=== PATIENT | male | born 1950 | race Hispanic/Latino ===

== ENCOUNTER 2017-03-19 08:12 | Observation (INO) | payer MEDICARE, OTHER ==
[2017-03-19 08:17] VITALS: BP 192/108; PULSE 71; RESP 16; TEMP 97.2; O2SAT 97
[2017-03-19 08:18] VITALS: BMI 31.3
--- NOTE | 2017-03-19 08:54 | ED PDOC ---
Lower Extremity Pain/Injury Time Seen by Provider: 03/19/17 08:28 Chief Complaint (Nursing): Lower Extremity Problem/Injury Chief Complaint (Provider): Left Hip and Thigh Pain History Per: Patient History/Exam Limitations: no limitations Onset/Duration Of Symptoms: Days Current Symptoms Are (Timing): Still Present Additional Complaint(s): Lupillo Larson is a 66 year old male who presents to the ED for evaluation of left hip and posterior thigh pain which began Thursday night. He states that the area feels swollen. He denies calf pain or swelling. No strenuous activity or trauma. Pain is worse with lying and going from sitting to standing. He has a colonoscopy scheduled for tomorrow and stopped taking his Coumadin on Thursday, but has kalyan giving himself Lovenox injections and taking aspirin. He has history of mitral valve replacement, pacemaker, HTN. He reports taking aspirin prior to arrival for pain relief and reports adequate relief at this time. Past Medical History Reviewed: Historical Data, Nursing Documentation, Vital Signs Vital Signs: Last Vital Signs Temp 97.2 F L 03/19/17 08:17 Pulse 71 03/19/17 08:17 Resp 16 03/19/17 08:17 BP 192/108 H 03/19/17 08:17 Pulse Ox 97 03/19/17 08:17 - Medical History PMH: Arthritis, Fractures, HTN, Mitral Valve Prolapse, Peripheral Edema Denies: CHF, COPD, HIV, Hypercholesterolemia, Hypothyroidism, Chronic Kidney Disease, Rheumatoid Arthritis - Surgical History Surgical History: Pacemaker - Family History Family History: States: Unknown Family Hx - Home Medications Home Medications: Ambulatory Orders Medication Instructions Recorded Allopurinol 300 mg PO DAILY 12/20/15 Acetaminophen [Tylenol] 325 mg PO Q4 PRN 12/29/15 Docusate [Colace] 200 mg PO BID 12/29/15 Metoprolol Tartrate [Lopressor] 50 mg PO Q12 12/29/15 Ferrous Sulfate [Feosol] 325 mg PO BID #0 tab 01/04/16 DiphenhydrAMINE [Benadryl] 25 mg PO HS PRN 01/16/16 HYDROmorphone [Dilaudid] 2 mg IV Q4H PRN 01/16/16 Oxycodone HCl/Acetaminophen 2 tab PO Q4H PRN #0 tablet 07/20/16 [Percocet 5-325 mg Tablet] oxyCODONE/Acetaminophen [Percocet 1 tab PO Q4 PRN #0 tab 01/16/16 5/325 mg Tab] traMADol [Ultram] 50 mg PO Q6H PRN #12 tab 03/19/17 - Allergies Allergies/Adverse Reactions: Allergies Allergy/AdvReac Type Severity Reaction Status Date / Time No Known Allergies Allergy Verified 01/17/16 00:24 Review of Systems Musculoskeletal: Positive for: Leg Pain, Other (Hip pain) Physical Exam - Physical Exam Appears: Positive for: Non-toxic, No Acute Distress Head Exam: Positive for: ATRAUMATIC, NORMOCEPHALIC Skin: Positive for: Normal Color, Warm, Dry Neck: Positive for: Normal, Painless ROM, Supple Cardiovascular/Chest: Positive for: Regular Rate, Rhythm. Negative for: Murmur Respiratory: Positive for: Normal Breath Sounds. Negative for: Respiratory Distress Gastrointestinal/Abdominal: Positive for: Normal Exam, Soft. Negative for: Tenderness Back: Positive for: Normal Inspection. Negative for: L CVA Tenderness, R CVA Tenderness, Other (Midline tenderness) Extremity: Positive for: Other (Tenderness oiver left medial hip posteriorly and posterior thigh, No edema, No knee pain or calf tenderness) - ECG O2 Sat by Pulse Oximetry: 97 - Progress ED Course And Treament: 03/19/17 09:15 Duplex Lower Extremity Vein Left IMPRESSION: No sonographic or Doppler evidence for DVT in left lower extremity. Medical Decision Making Medical Decision Making: Impression: Leg Pain Musculoskeletal Pain DVT Plan: XRay US Scribe Attestation: Documented by Dedrick Gabriel, acting as a scribe for Purvi Sanz MD. Provider Scribe Attestation: All medical record entries made by the Scribe were at my direction and personally dictated by me. I have reviewed the chart and agree that the record accurately reflects my personal performance of the history, physical exam, medical decision making, and the department course for this patient. I have also personally directed, reviewed, and agree with the discharge instructions and disposition. ED OBSERVATION - Progress Note Progress Note: 03/19/17 10:00 Patient placed on Obs because of extensive time of workup. 03/19/17 12:00 CT Left Hip without Contrast IMPRESSION: No evidence of acute fracture or dislocation. Few scattered sclerotic bony lesions korey the left pelvic bones and left femoral neck with the largest lesion measures 2.4 cm. The differential consideration includes benign bone island and sclerotic osseous metastasis. correlation with PSA level is suggested. Focal area of high attenuation seen at and adjacent to the left gluteus medius muscle may represent hematoma. Other etiology including neoplasm is not totally excluded. Adjacent subcutaneous fat stranding seen in the left pelvic wall. Correlate clinically for recent trauma. if the patient's symptoms persists further assessment by MRI may be obtained. 03/19/17 13:[address] Hal Rutledge. He recommends CMP and PSA level and to discharge patient home on tramadol. He will follow the results and will follow up with patient tomorrow. Patient can continue with the colonoscopy as scheduled. Disposition - Clinical Impression Clinical Impression: Bony sclerosis - Disposition Condition: STABLE
--- NOTE | 2017-03-19 10:42 | RAD ---
PROCEDURE: Left Hip X-ray Radiographs. HISTORY: LUE pain COMPARISON: None. FINDINGS: BONES: There is no evidence of acute fracture or dislocation. There is suspicious for focal sclerotic bony lesion at the superior portion of the left iliac bone. No evidence of destructive bony lesion. JOINTS: Smbw-to-[id number] bilateral osteoarthritic changes at the hip joints. SOFT TISSUES: Normal. OTHER FINDINGS: None. IMPRESSION: No evidence of acute fracture or dislocation. Suspicious for sclerotic bony lesion at the superior portion of the left iliac bone. Osteoarthritic changes at the hip joints.
--- NOTE | 2017-03-19 11:06 | US ---
HISTORY: Pain PRIORS: 12/23/2016. FINDINGS: 2-D, color and duplex Doppler analysis of the lower extremity venous circulation using routine protocol from the femoral veins through the popliteal veins. Venous compressibility: Normal. Flow and augmentation patterns: Normal. Visualized veins upper third of calf: Normal. Bond cyst: None. IMPRESSION: No sonographic or Doppler evidence for DVT in left lower extremity.
--- NOTE | 2017-03-19 12:41 | CT ---
PROCEDURE: CT of the left hip without contrast HISTORY: Abnormal XR. Left hip pain COMPARISON: Comparison is made to the previous x-ray done on the same date. TECHNIQUE: Axial and reformatted coronal and sagittal CT images of the left pelvis and left hip were obtained without IV contrast administration. FINDINGS: There is no evidence of acute fracture or dislocation. Nfan-[id number] osteoarthritic changes at the left hip joint seen. There are few scattered sclerotic bony lesion at the left iliac bone and left femoral neck. The largest sclerotic lesions seen at the left iliac bone measures approximately 2.4 x 1.8 centimeter. Findings may represent bone islands. The possibility of osseous metastasis is not totally excluded. Correlation with PSA level is suggested. There is poorly defined area of high attenuation seen at and adjacent to the upper portion of left low-dose medius muscle measures 4.3 centimeter in the AP diameter 3.2 centimeter in the transverse diameter. There are adjacent subcutaneous stranding and induration. Findings could represent posttraumatic changes and hematoma. Other etiology including neoplasm is not totally excluded. Otherwise no evidence of soft tissue abnormality in this noncontrast study. The visualized portion of the pelvis demonstrates scattered colonic diverticulosis without evidence of diverticulitis. The prostate is mildly enlarged. No evidence of lymphadenopathy in the visualized portion of the pelvis. Moderate degenerative changes at the lower lumbar spine are noted. IMPRESSION: No evidence of acute fracture or dislocation. Few scattered sclerotic bony lesions at the left pelvic bones and left femoral neck with the largest lesion measures 2.4 centimeter. The differential consideration includes benign bone island and sclerotic osseous metastasis. Correlation with PSA level is suggested. Focal area of high attenuation seen at and adjacent to the left gluteus medius muscle may represent hematoma. Other etiology including neoplasm is not totally excluded. Adjacent subcutaneous fat stranding seen in the left pelvic wall. Correlate clinically for recent trauma. If the patient's symptoms persist further assessment by MRI may be obtained. Findings were discussed with the referring ER physician Dr. Sanz at 12:30 p.m. on 03/19/2017.
[2017-03-19 13:39] LABS: ALB/GLOB RATIO 1.6 (1.0-2.1); ALKALINE PHOSPHATASE 63 U/L (38-126); ALT/SGPT 35 U/L (21-72); AST/SGOT 37 U/L (17-59); BILIRUBIN,TOTAL 0.9 mg/dl (0.2-1.3); BLOOD UREA NITROGEN 22 mg/dl (9-20); CALCIUM 9.4 mg/dL (8.4-10.2); CARBON DIOXIDE 27 mmol/L (22-30); CHLORIDE 102 mmol/L (98-107); GFR AFRICAN-AMERICAN > 60; GLUCOSE,RANDOM 100 mg/dL (75-110); POTASSIUM 4.5 MMOL/L (3.6-5.0); SODIUM 138 mmol/l (132-148)
[2017-03-19 14:08] LABS: PROSTATE SPECIFIC ANTIGEN 0.789 ng/ML (0.00-4.0)
== END 2017-03-19 13:35 | disposition home or self-care (01) ==
LOC: H.ER 08:12 → H.EROBSV 10:00
PROVIDERS: ADMIT Emergency Medicine; ATTEND Emergency Medicine
DX: M79.652 Pain in left thigh (principal); I10 Essential (primary) hypertension; M19.90 Unspecified osteoarthritis, unspecified site; Z95.2 Presence of prosthetic heart valve; Z95.0 Presence of cardiac pacemaker
CPT/HCPCS: 36415; 73502; 73700; 80053; 84153; 93971; 99283; G0378

== ENCOUNTER 2017-08-04 09:44 | Emergency (ER) | payer MEDICARE, OTHER ==
[2017-08-04 09:44] VITALS: BMI 31.3
[2017-08-04 09:56] VITALS: TEMP 97
[2017-08-04] MEDS ORDERED: Phenylephrine 0.5% Nasal Spray NAS STA (10:19)
[2017-08-04] MEDS ORDERED: Phenylephrine 0.5% Nasal Spray NAS ONE ×2 (10:25→18:30)
--- NOTE | 2017-08-04 10:48 | ED PDOC ---
HPI: Nose Bleed Time Seen by Provider: 08/04/17 10:11 Chief Complaint (Nursing): ENT Problem Chief Complaint (Provider): Epistaxis History Per: Patient History/Exam Limitations: no limitations Onset/Duration Of Symptoms: Days (x1) Current Symptoms Are (Timing): Still Present Additional Complaint(s): 66 year old male with a past medical history of atrial fibrillation and aortic valve replacement, who presents to the ED complaining of epistaxis x1 day. States right nose greater than left and it began this morning. Denies trauma. Patient states he is on Coumadin for atrial fibrillation and mechanical valve. Denies any bruising or blood in stools. PMD: Bob Rutledge V Past Medical History Reviewed: Historical Data, Nursing Documentation, Vital Signs Vital Signs: Last Vital Signs Temp 97.0 F L 08/04/17 09:52 Pulse 66 08/04/17 09:52 Resp 18 08/04/17 09:52 BP 167/97 H 08/04/17 09:52 Pulse Ox 100 08/04/17 09:52 - Medical History PMH: Arthritis, Atrial Fibrillation, Fractures, HTN, Mitral Valve Prolapse, Peripheral Edema Denies: CHF, COPD, HIV, Hypercholesterolemia, Hypothyroidism, Chronic Kidney Disease, Rheumatoid Arthritis - Surgical History Surgical History: Pacemaker Other surgeries: Aortic valve replacement - Family History Family History: States: Unknown Family Hx - Home Medications Home Medications: Ambulatory Orders Medication Instructions Recorded Allopurinol 300 mg PO DAILY 12/20/15 Metoprolol Tartrate [Lopressor] 50 mg PO Q12 12/29/15 Aspirin [Ecotrin] 81 mg PO DAILY 08/04/17 Furosemide [Lasix] 40 mg PO DAILY 08/04/17 Warfarin [Coumadin] 10 mg PO DAILY 08/04/17 - Allergies Allergies/Adverse Reactions: Allergies Allergy/AdvReac Type Severity Reaction Status Date / Time No Known Allergies Allergy Verified 01/17/16 00:24 Review of Systems ROS Statement: Except As Marked, All Systems Reviewed And Found Negative ENT: Positive for: Other (epistaxis) Gastrointestinal: Negative for: Hematochezia Skin: Negative for: Bruising Physical Exam - Reviewed Nursing Documentation Reviewed: Yes Vital Signs Reviewed: Yes - Physical Exam Appears: Positive for: Non-toxic, No Acute Distress Head Exam: Positive for: ATRAUMATIC, NORMAL INSPECTION, NORMOCEPHALIC Skin: Positive for: Normal Color (no ecchymosis or petechia), Warm, Dry. Negative for: Rash Eye Exam: Positive for: EOMI, Normal appearance, PERRL ENT: Positive for: Other (anterior right nares oozing mildly) Neck: Positive for: Normal, Painless ROM, Supple Cardiovascular/Chest: Positive for: Irregularly Irregular Respiratory: Positive for: Normal Breath Sounds. Negative for: Respiratory Distress Gastrointestinal/Abdominal: Positive for: Normal Exam, Bowel Sounds, Soft. Negative for: Tenderness Back: Positive for: Normal Inspection. Negative for: L CVA Tenderness, R CVA Tenderness, Vertebral Tenderness Extremity: Positive for: Normal ROM. Negative for: Pedal Edema, Deformity Neurologic/Psych: Positive for: Alert, Oriented (x3). Negative for: Motor/ Sensory Deficits - Laboratory Results Result Diagrams: 08/04/17 10:33 08/04/17 10:33 - ECG O2 Sat by Pulse Oximetry: 100 (RA) Pulse Ox Interpretation: Normal - Progress Re-evaluation Time: 11:33 Condition: Improved (No bleeding or oozing) - Physician Consult Information Outcome Of Conversation: Hold Coumadin. Call office Thurs to confirm colonoscopy Medical Decision Making Medical Decision Making: Time: 10:19 Initial Plan: --CMP --CBC w/ differential --PTT --Nasal [place] --Reevaluation Scribe Attestation: Documented by Prashanth Martins, acting as a scribe for Frank Molina MD. Provider Scribe Attestation: All medical record entries made by the Scribe were at my direction and personally dictated by me. I have reviewed the chart and agree that the record accurately reflects my personal performance of the history, physical exam, medical decision making, and the department course for this patient. I have also personally directed, reviewed, and agree with the discharge instructions and disposition. Disposition - Clinical Impression Clinical Impression: Epistaxis - Patient ED Disposition Is Patient to be Admitted: No Counseled Patient/Family Regarding: Studies Performed, Diagnosis, Need For Followup - Disposition Referrals: Pawan Paulson MD [Staff Provider] - Jona Zhou MD, PhD [Staff Provider] - Disposition: Routine/Home Disposition Time: 11:34 Condition: FAIR Instructions: Nosebleed (ED) Forms: [employer] (Gu[place]ian)
[2017-08-04 10:51] LABS: BASO # 0.1 K/uL (0.0-0.2); BASO % 0.5 % (0.0-2.0); EOS # 0.2 K/uL (0.0-0.7); EOS % 1.7 % (0.0-4.0); HEMOGLOBIN 13.9 g/dL (12.0-18.0); LYMPH # 1.8 K/uL (1.0-4.3); LYMPH % 18.4 % (20.0-40.0); MEAN CELL VOLUME 89.8 fl (80.0-94.0); MEAN CORPUSCULAR HEMOGLOBIN 29.2 pg (27.0-31.0); MEAN CORPUSCULAR HGB CONC 32.5 g/dL (33.0-37.0); MEAN PLATELET VOLUME 11.2 fl (7.2-11.7); MONO % 10.4 % (0.0-10.0); NEUT # 6.8 K/uL (1.8-7.0); RBC 4.77 Mil/uL (4.40-5.90); RED CELL DISTRIBUTION WIDTH 15.1 % (11.5-14.5); WHITE BLOOD COUNT 9.9 K/uL (4.8-10.8)
[2017-08-04 10:52] LABS: INR 3.4 (0.9-1.2); PROTHROMBIN TIME 38.8 Seconds (9.8-13.1)
[2017-08-04 11:10] LABS: ALB/GLOB RATIO 1.4 (1.0-2.1); ALBUMIN 4.3 g/dL (3.5-5.0); CALCIUM 9.7 mg/dL (8.4-10.2)
[2017-08-04 15:11] VITALS: BP 153/94; PULSE 86; RESP 16; O2SAT 99
[2017-08-04] MEDS ORDERED: Silver Nitrate Topical - Stick ONE ×4 (18:26→22:35)
[2017-08-04] MEDS ORDERED: Absorbable Gelatin Sponge Size 12-7 ONE (20:34)
[2017-08-04] MEDS ORDERED: Lidocaine 2% Jelly (Uro-Jet) ONE (21:20)
== END 2017-08-04 16:04 | disposition home or self-care (01) ==
LOC: H.ER 09:44
DX: R04.0 Epistaxis (principal); I10 Essential (primary) hypertension; I48.91 Unspecified atrial fibrillation; Z79.01 Long term (current) use of anticoagulants

== ENCOUNTER 2017-08-04 18:04 | Observation (INO) | payer MEDICARE, OTHER ==
[2017-08-04 18:04] VITALS: BMI 31.3
[2017-08-04] MEDS ORDERED: Silver Nitrate Topical - Stick TOP ONE (18:22)
--- NOTE | 2017-08-04 18:52 | ED PDOC ---
HPI: Nose Bleed Time Seen by Provider: 08/04/17 18:22 Chief Complaint (Nursing): ENT Problem History Per: Patient (Recurrent epistaxis, seen earlier and packed with rhino. Returns with bleeding right nares) Past Medical History Vital Signs: Last Vital Signs Temp 98.0 F 08/04/17 18:10 Pulse 70 08/04/17 18:10 Resp 16 08/04/17 18:10 BP 154/93 H 08/04/17 18:10 Pulse Ox 100 08/04/17 18:10 - Medical History PMH: Arthritis, Atrial Fibrillation, Fractures, HTN, Mitral Valve Prolapse, Peripheral Edema Denies: CHF, COPD, HIV, Hypercholesterolemia, Hypothyroidism, Chronic Kidney Disease, Rheumatoid Arthritis - Surgical History Surgical History: Pacemaker - Family History Family History: States: Unknown Family Hx - Home Medications Home Medications: Ambulatory Orders Medication Instructions Recorded Allopurinol 300 mg PO DAILY 12/20/15 Metoprolol Tartrate [Lopressor] 50 mg PO Q12 12/29/15 Aspirin [Ecotrin] 81 mg PO DAILY 08/04/17 Furosemide [Lasix] 40 mg PO DAILY 08/04/17 Warfarin [Coumadin] 10 mg PO DAILY 08/04/17 - Allergies Allergies/Adverse Reactions: Allergies Allergy/AdvReac Type Severity Reaction Status Date / Time No Known Allergies Allergy Verified 01/17/16 00:24 Review of Systems ENT: Positive for: Other (Nose bleed) Physical Exam - Physical Exam Appears: Positive for: Non-toxic, No Acute Distress Skin: Positive for: Normal Color ENT: Positive for: Other (Oozing ant right nares. Cauterized with silver nitrate ) - Laboratory Results Result Diagrams: 08/04/17 18:55 - ECG O2 Sat by Pulse Oximetry: 100 Medical Decision Making Medical Decision Making: Multiple attempts at cauterization withsilver nitrate. Packed x 2 with rhinocort. Packed with surgicel. Continues to ooze. Discussed with Dr. Wolff, will come in to evaluate and pack pt. Disposition - Clinical Impression Clinical Impression: Epistaxis, Coagulopathy - Patient ED Disposition Is Patient to be Admitted: Yes - Disposition Disposition Time: 21:21 Condition: FAIR Forms: [facility] (Urdu) - Pt Status Changed To: Hospital Disposition Of: Observation - POA Present On Arrival: None
[2017-08-04 19:04] LABS: BASO # 0.1 K/uL (0.0-0.2); BASO % 0.8 % (0.0-2.0); EOS # 0.1 K/uL (0.0-0.7); EOS % 1.1 % (0.0-4.0); HEMOGLOBIN 11.9 g/dL (12.0-18.0); LYMPH % 17.4 % (20.0-40.0); MEAN CELL VOLUME 89.9 fl (80.0-94.0); MEAN CORPUSCULAR HEMOGLOBIN 28.6 pg (27.0-31.0); MEAN CORPUSCULAR HGB CONC 31.8 g/dL (33.0-37.0); MEAN PLATELET VOLUME 12.1 fl (7.2-11.7); MONO # 1.2 K/uL (0.0-0.8); MONO % 10.2 % (0.0-10.0); NEUT % 70.5 % (50.0-75.0); RBC 4.15 Mil/uL (4.40-5.90); RED CELL DISTRIBUTION WIDTH 14.7 % (11.5-14.5); WHITE BLOOD COUNT 11.4 K/uL (4.8-10.8)
[2017-08-04] MEDS ORDERED: Cellulose Hemostat 2X3 Sheet TP ONE (20:27)
[2017-08-04] MEDS ORDERED: Absorbable Gelatin Sponge Size 12-7 ONE (20:44)
[2017-08-04] MEDS ORDERED: Sodium Chloride 0.9% 1,000 ML IV STA (21:19)
[2017-08-05 06:46] LABS: MEAN CELL VOLUME 88.7 fl (80.0-94.0); MEAN CORPUSCULAR HEMOGLOBIN 29.2 pg (27.0-31.0); MEAN CORPUSCULAR HGB CONC 32.9 g/dL (33.0-37.0); RBC 3.44 Mil/uL (4.40-5.90); RED CELL DISTRIBUTION WIDTH 14.7 % (11.5-14.5); WHITE BLOOD COUNT 9.7 K/uL (4.8-10.8)
[2017-08-05 06:53] LABS: INR 3.6 (0.9-1.2); PARTIAL THROMBOPLASTIN TIME 35.7 Seconds (25.6-37.1)
[2017-08-05 06:55] LABS: PROTHROMBIN TIME 41.4 Seconds (9.8-13.1)
--- NOTE | 2017-08-05 07:46 | OP ---
PROCEDURE DATE: 08/04/2017 PREOPERATIVE DIAGNOSIS: Right epistaxis. POSTOPERATIVE DIAGNOSIS: Right epistaxis. PROCEDURE: Cauterization of epistaxis, right. SIGNIFICANT FINDINGS: Bleeding area on the anterior septum on the right. DESCRIPTION OF PROCEDURE: The patient was placed in a seated position. The nose was anesthetized using lidocaine jelly. Nasal speculum and headlights were used to visualize the anterior nasal septum. Silver nitrate sticks were used to cauterize the septum on the side. A small piece of Surgicel was placed over the septum, noticed to control the bleeding. Bleeding was controlled. Deepak Wolff MD
[2017-08-05 08:25] VITALS: BP 134/75; PULSE 59; RESP 20; TEMP 98; O2SAT 98
--- NOTE | 2017-08-05 08:57 | CP.PCM.HP ---
History of Present Illness - History of Present Illness History of Present Illness: This 66-year-old man came to the emergency room with complaints of severe nosebleed was treated and sent home and returned to the emergency room again because severe nosebleed from the right nostril continued. Attempts to cauterize it in the emergency room were unsuccessful as well as packing the nostril was not really successful and the patient and an ENT surgeon finally had to come into the emergency room and thoroughly cauterize the bleeder as well as PAC the right nostril the patient overnight has not had any further bleeding. He does report four bouts of mild loose bowel movements which are tarry black. 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 The patient had bouts of atrial flutter which was ablated and the patient demonstrated severe bradycardia requiring an urgent pacemaker implant at the same time. The patient subsequently has had atrial flutter fibrillation with a VVI pacemaker in place. He has had congestive cardiac failure with a left ventricular ejection fraction which was in the range of 30-35% on echocardiogram in November 2015. Patient has been taking furosemide regularly. He has taken warfarin regularly for the last 10 years and has had appropriate monitoring as well as bridging with SC Lovenox whenever a surgical procedure or dental extraction or colonoscopy was done. The patient has taken oral antibiotic for BE prophylaxis appropriately over the years. Physical examination now shows a middle aged pleasant man who has nasal packing in the right nostril but otherwise feels well. He had just finished eating his breakfast and reports no further bleeding overnight. As mentioned earlier he has had 4 bouts of tarry stools during the night. Telemetry shows a heart rate of 68 bpm with appropriate VVI pacemaker function. His blood pressure was 134/ 70 mmHg. His jugular venous pressure was not elevated and there was no edema or his lower extremity. The pedal pulses are well felt. There were no carotid bruits. His extremities were warm and his nailbeds are pink. There was no central or peripheral cyanosis. A scar of sternotomy was evident. A mitral prosthetic Cadman's was audible. His lab data showed his hemoglobin to be 11.9 g yesterday and 10.0 g this morning. His platelet count was 89,000. His INR last night was 3.6 his BUN and creatinine were 61 and 1.7 mg percent. His potassium was 3.5 mg/L. Impression: Severe epistaxis with coagulopathy induced by oral anticoagulation. Status post mitral valve replacement with a metallic prosthesis. Status post VVI pacemaker implant with chronic atrial flutter fibrillation. The patient will have his PT/INR drawn this morning and I will adjust his Coumadin dosage appropriately. His blood count drawn this morning will be checked again. He probably will need oral iron replacement. At this point he has no further bleed and is hemodynamically stable and I will okayed his discharge. The patient is to be managed as an outpatient. He has an appointment to see the ENT surgeon in couple of days. Present on Admission - Present on Admission Any Indicators Present on Admission: No Past Patient History - Infectious Disease Hx of Infectious Diseases: None - Tetanus Immunizations Tetanus Immunization: Unknown - Past Medical History & Family History Past Medical History?: Yes - Past Social History Smoking Status: Never Smoked - CARDIAC Hx Cardiac Disorders: Yes Hx Hypertension: Yes Hx Pacemaker: Yes Other/Comment: MITRAL VALVE REPLACEMENT 2006 - PULMONARY Hx Respiratory Disorders: No Hx Chronic Obstructive Pulmonary Disease (COPD): No - NEUROLOGICAL Hx Neurological Disorder: No - HEENT Hx HEENT Problems: No - RENAL Hx Chronic Kidney Disease: No - ENDOCRINE/METABOLIC Hx Endocrine Disorders: No Hx Hypothyroidism: No - HEMATOLOGICAL/ONCOLOGICAL Hx Blood Disorders: Yes Hx AIDS: No Hx Anemia: Yes Hx Blood Transfusions: Yes Hx Human Immunodeficiency Virus (HIV): No - INTEGUMENTARY Hx Dermatological Problems: No - MUSCULOSKELETAL/RHEUMATOLOGICAL Hx Musculoskeletal Disorders: Yes Hx Falls: No Hx Gout: Yes - GASTROINTESTINAL Hx Gastrointestinal Disorders: No - GENITOURINARY/GYNECOLOGICAL Hx Genitourinary Disorders: No - PSYCHIATRIC Hx Psychophysiologic Disorder: No Hx Substance Use: No - SURGICAL HISTORY Hx Surgeries: Yes (PM in 2005, mitral valve replacement 2006) Hx Valve Replacement: Yes (Giulia valve replacement) Other/Comment: I and D right hip done 01/01 2016 and 12/17? 2016 - ANESTHESIA Hx Anesthesia: Yes Hx Anesthesia Reactions: No Hx Malignant Hyperthermia: No Meds Allergies/Adverse Reactions: Allergies Allergy/AdvReac Type Severity Reaction Status Date / Time No Known Allergies Allergy Verified 01/17/16 00:24 Results - Vital Signs Recent Vital Signs: Last Vital Signs Temp 98 F 08/05/17 08:00 Pulse 59 L 08/05/17 08:00 Resp 20 08/05/17 08:00 BP 134/75 02/07/18 08:00 Pulse Ox 98 08/05/17 08:00 - Labs Result Diagrams: 08/05/17 05:30 08/05/17 05:30 Labs: Laboratory Results - last 24 hr 08/04/17 08/04/17 08/05/17 18:55 23:15 05:30 WBC 11.4 H 9.7 RBC 4.15 L 3.44 L Hgb 11.9 L D 10.0 L Hct 37.3 30.5 L MCV 89.9 88.7 MCH 28.6 29.2 MCHC 31.8 L 32.9 L RDW 14.7 H 14.7 H Plt Count 107 L 89 L MPV 12.1 H Neut % (Auto) 70.5 Lymph % (Auto) 17.4 L [place] % (Auto) 10.2 H Eos % (Auto) 1.1 Baso % (Auto) 0.8 Neut # (Auto) 8.0 H Lymph # (Auto) 2.0 [place] # (Auto) 1.2 H Eos # (Auto) 0.1 Baso # (Auto) 0.1 PT INR APTT Sodium Potassium Chloride Carbon Dioxide Anion Gap BUN Creatinine Est GFR ( Amer) Est GFR (Non-Af Amer) Random Glucose Calcium Blood Type A NEGATIVE Antibody Screen Negative BBK History Checked Patient has bt 08/05/17 08/05/17 05:30 05:30 WBC RBC Hgb Hct MCV MCH MCHC RDW Plt Count MPV Neut % (Auto) Lymph % (Auto) [place] % (Auto) Eos % (Auto) Baso % (Auto) Neut # (Auto) Lymph # (Auto) [place] # (Auto) Eos # (Auto) Baso # (Auto) PT 41.4 H* INR 3.6 H APTT 35.7 Sodium 145 Potassium 3.5 L Chloride 106 Carbon Dioxide 28 Anion Gap 15 BUN 61 H Creatinine 1.7 H Est GFR ( Amer) 49 Est GFR (Non-Af Amer) 41 Random Glucose 92 Calcium 9.0 Blood Type Antibody Screen BBK History Checked
== END 2017-08-05 12:06 | disposition home or self-care (01) ==
LOC: H.ER 18:04 → H.ERHOLD 21:17 → H.TEL 23:37
PROVIDERS: ADMIT Internal Medicine Cardiovascular Disease; ATTEND Internal Medicine Cardiovascular Disease
DX: R04.0 Epistaxis (principal); D68.9 Coagulation defect, unspecified; I48.2 Chronic atrial fibrillation; I48.92 Unspecified atrial flutter; I34.1 Nonrheumatic mitral (valve) prolapse; I11.0 Hypertensive heart disease with heart failure; I50.9 Heart failure, unspecified; M19.90 Unspecified osteoarthritis, unspecified site; Z95.0 Presence of cardiac pacemaker; Z95.2 Presence of prosthetic heart valve; Z79.01 Long term (current) use of anticoagulants; Z79.82 Long term (current) use of aspirin
CPT/HCPCS: 30901; 36415; 80048; 85025; 85027; 85610; 85730; 86850; 86900; 96374; 99285; G0378; J2405

== ENCOUNTER 2017-08-28 07:51 | Day surgery (SDC) | payer MEDICARE, OTHER ==
[2017-08-28] MEDS ORDERED: Lactated Ringer's 1,000 ML IV ONE (08:34)
[2017-08-28 09:26] VITALS: O2SAT 100
[2017-08-28] MEDS ORDERED: Propofol 10 mg/ml Inj (20 ML) ONE (09:41)
[2017-08-28] MEDS ORDERED: Lidocaine PF 2% (5 ml) Inj (For Cardiac Arrhy) IV ONE (09:41)
[2017-08-28 10:19] VITALS: TEMP 97.6
[2017-08-28 11:02] VITALS: BP 116/70; PULSE 90; RESP 19
== END 2017-08-28 13:36 | disposition home or self-care (01) ==
LOC: H.ENDO 07:51
PROVIDERS: ATTEND Internal Medicine Gastroenterology
DX: Z86.010 Personal history of colon polyps (principal); I25.10 Atherosclerotic heart disease of native coronary artery without angina pectoris; I10 Essential (primary) hypertension; M10.9 Gout, unspecified; D12.2 Benign neoplasm of ascending colon; K21.9 Gastro-esophageal reflux disease without esophagitis; K64.8 Other hemorrhoids; K30 Functional dyspepsia; K31.9 Disease of stomach and duodenum, unspecified; B96.81 Helicobacter pylori [H. pylori] as the cause of diseases classified elsewhere; K29.50 Unspecified chronic gastritis without bleeding
CPT/HCPCS: 43239; 45385; 88305; J2001; J2704; J3370; J7120

== ENCOUNTER 2018-02-25 12:49 | Emergency (ER) | payer MEDICARE, OTHER ==
[2018-02-25 12:56] VITALS: TEMP 98.1; BMI 29.7
--- NOTE | 2018-02-25 13:28 | ED PDOC ---
HPI: Abdomen Time Seen by Provider: 02/25/18 13:06 Chief Complaint (Nursing): Abdominal Pain Chief Complaint (Provider): abdominal pain History Per: Patient History/Exam Limitations: no limitations Onset/Duration Of Symptoms: Days (yesterday) Current Symptoms Are (Timing): Still Present Location Of Pain/Discomfort: Other (lower) Associated Symptoms: Diarrhea. denies: Fever, Chills, Nausea, Vomiting Additional Complaint(s): Lupillo Larson is a 67 year old male, with a past medical history of mitral valve replacement and HTN, who presents to the emergency department complaining of lower abdominal pain associated with diarrhea and abdominal distention onset since yesterday. He denies any fever, chills, nausea, vomiting or bloody stools. No further medical complaints. PMD: Bob Rutledge V Past Medical History Reviewed: Historical Data, Nursing Documentation, Vital Signs Vital Signs: Last Vital Signs Temp 98.1 F 02/25/18 12:58 Pulse 77 02/25/18 12:58 Resp 16 02/25/18 12:58 BP 169/87 H 02/25/18 12:58 Pulse Ox 98 02/25/18 13:30 - Medical History PMH: Anemia, Arthritis, Atrial Fibrillation, Fractures, HTN, Mitral Valve Prolapse, Peripheral Edema Denies: CHF, COPD, HIV, Hypercholesterolemia, Hypothyroidism, Chronic Kidney Disease, Rheumatoid Arthritis - Surgical History Surgical History: Pacemaker - Family History Family History: States: Unknown Family Hx - Social History Current smoker - smoking cessation education provided: No Alcohol: None Drugs: Denies - Home Medications Home Medications: Ambulatory Orders Medication Instructions Recorded Allopurinol 300 mg PO DAILY 12/20/15 Metoprolol Tartrate [Lopressor] 50 mg PO Q12 12/29/15 Aspirin [Ecotrin] 81 mg PO DAILY 08/04/17 Furosemide [Lasix] 40 mg PO DAILY 08/04/17 Warfarin [Coumadin] 10 mg PO DAILY 08/04/17 Enoxaparin [Lovenox] SUBCUT DAILY 08/28/17 Ciprofloxacin HCl [Cipro] 500 mg PO BID #20 tab 02/25/18 Dicyclomine [Dicyclomine HCl] 10 mg PO Q8 #10 cap 02/25/18 metroNIDAZOLE [Flagyl] 500 mg PO Q8 #30 tab 02/25/18 - Allergies Allergies/Adverse Reactions: Allergies Allergy/AdvReac Type Severity Reaction Status Date / Time shellfish derived Allergy RASH Verified 02/25/18 12:58 Review of Systems ROS Statement: Except As Marked, All Systems Reviewed And Found Negative Constitutional: Negative for: Fever, Chills Gastrointestinal: Positive for: Abdominal Pain, Diarrhea. Negative for: Nausea , Vomiting, Hematochezia Physical Exam - Reviewed Nursing Documentation Reviewed: Yes Vital Signs Reviewed: Yes - Physical Exam Appears: Positive for: No Acute Distress Head Exam: Positive for: ATRAUMATIC, NORMAL INSPECTION, NORMOCEPHALIC Skin: Positive for: Normal Color, Warm, Dry Eye Exam: Positive for: Normal appearance, EOMI, PERRL Neck: Positive for: Painless ROM Cardiovascular/Chest: Positive for: Regular Rate, Rhythm. Negative for: Murmur Respiratory: Positive for: Normal Breath Sounds. Negative for: Respiratory Distress Gastrointestinal/Abdominal: Positive for: Bowel Sounds (present), Tenderness ( mild tenderness to lower quadrants, left > right), Distended Back: Positive for: Normal Inspection. Negative for: L CVA Tenderness, R CVA Tenderness Extremity: Positive for: Normal ROM (upper and lower extremities). Negative for : Deformity, Swelling Neurologic/Psych: Positive for: Alert, Oriented. Negative for: Motor/Sensory Deficits - Laboratory Results Result Diagrams: 02/25/18 13:20 02/25/18 13:20 - ECG O2 Sat by Pulse Oximetry: 98 (RA) Pulse Ox Interpretation: Normal Medical Decision Making Medical Decision Making: Time: 13:06 Initial Impression: abdominal pain Initial Plan: --Abd & Pelvis w/o PO or IV contrast [CT] --CMP --Urine dipstick --CBC w/ differential --PT/INR --Reevaluation ----- Scribe Attestation: Documented by Jeff Desai, acting as a scribe for Frank Molina MD. Provider Scribe Attestation: All medical record entries made by the Scribe were at my direction and personally dictated by me. I have reviewed the chart and agree that the record accurately reflects my personal performance of the history, physical exam, medical decision making, and the department course for this patient. I have also personally directed, reviewed, and agree with the discharge instructions and disposition. Disposition - Clinical Impression Clinical Impression: Diverticulitis - Patient ED Disposition Is Patient to be Admitted: No Counseled Patient/Family Regarding: Studies Performed, Diagnosis, Need For Followup, Rx Given - Disposition Referrals: Bob Rutledge MD [Staff Provider] - Disposition: Routine/Home Disposition Time: 14:53 Condition: FAIR Prescriptions: Ciprofloxacin HCl [Cipro] 500 mg PO BID #20 tab Dicyclomine [Dicyclomine HCl] 10 mg PO Q8 #10 cap metroNIDAZOLE [Flagyl] 500 mg PO Q8 #30 tab Instructions: Diverticulitis Forms: [facility] (Telugu)
[2018-02-25 13:34] LABS: BASO # 0.1 K/uL (0.0-0.2); BASO % 0.5 % (0.0-2.0); EOS # 0.1 K/uL (0.0-0.7); EOS % 0.8 % (0.0-4.0); HEMOGLOBIN 11.9 g/dL (12.0-18.0); LYMPH % 9.5 % (20.0-40.0); MEAN CELL VOLUME 90.7 fl (80.0-94.0); MEAN CORPUSCULAR HEMOGLOBIN 29.6 pg (27.0-31.0); MEAN CORPUSCULAR HGB CONC 32.6 g/dL (33.0-37.0); MEAN PLATELET VOLUME 11.4 fl (7.2-11.7); MONO # 1.3 K/uL (0.0-0.8); NEUT # 8.2 K/uL (1.8-7.0); NEUT % 77.2 % (50.0-75.0); PLATELET COUNT 101 K/uL (130-400); RBC 4.03 Mil/uL (4.40-5.90); RED CELL DISTRIBUTION WIDTH 16.2 % (11.5-14.5); WHITE BLOOD COUNT 10.7 K/uL (4.8-10.8)
[2018-02-25 13:42] LABS: INR 2.1; PROTHROMBIN TIME 23.2 Seconds (9.8-13.1)
[2018-02-25 13:55] LABS: ALB/GLOB RATIO 1.3 (1.0-2.1); ALBUMIN 4.5 g/dL (3.5-5.0); ALT/SGPT 32 U/L (21-72); AST/SGOT 34 U/L (17-59); BLOOD UREA NITROGEN 24 mg/dl (9-20); CALCIUM 9.6 mg/dL (8.4-10.2); GFR NON-AFRICAN AMERICAN > 60
--- NOTE | 2018-02-25 14:14 | CT ---
Date of service: 02/25/2018 PROCEDURE: CT Abdomen and Pelvis without intravenous contrast HISTORY: r/o kidney stone COMPARISON: 01/15/2016. TECHNIQUE: CT scan of the abdomen and pelvis was performed without administration of intravenous contrast. Oral contrast was not administered. Coronal and sagittal reformatted images were obtained. . Radiation dose: Total exam DLP = 739.72 mGy-cm. This CT exam was performed using one or more of the following dose reduction techniques: Automated exposure control, adjustment of the mA and/or kV according to patient size, and/or use of iterative reconstruction technique. FINDINGS: LOWER THORAX: The visualized lungs are clear. There is a tiny calcified nodule in the right middle lobe. LIVER: Normal in size. No intrahepatic ductal dilatation. GALLBLADDER AND BILE DUCTS: No calcified gallstones. No biliary dilatation PANCREAS: Normal in size. No ductal dilatation. SPLEEN: Normal in size. ADRENALS: Normal in size. No discrete nodule. KIDNEYS AND URETERS: Normal in size without nephrolithiasis. No hydronephrosis. There is a 3.8 cm simple cyst in the upper pole of the right kidney. VASCULATURE: No aortic aneurysm. BOWEL: The small bowel loops are normal in caliber. There is left colonic diverticulosis. There is apparent mild circumferential mural thickening in the distal descending and proximal sigmoid colon with significant pericolonic inflammatory changes. No evidence of micro perforation or abscess. . No bowel dilatation or wall thickening. No bowel obstruction. APPENDIX: Normal appendix. PERITONEUM: No free fluid. No free air. LYMPH NODES: No enlarged lymph nodes. BLADDER: Well distended and grossly normal in appearance. REPRODUCTIVE: The the prostate gland is normal in size BONES: No acute fracture. There is diffuse bone demineralization and multilevel degenerative changes in the spine. OTHER FINDINGS: There are bilateral small fat containing inguinal hernias. IMPRESSION: Findings are most compatible with long segmental acute diverticulitis involving the left distal descending colon and proximal sigmoid colon. No micro perforation or abscess.
[2018-02-25 14:21] LABS: BASOPHIL 1 % (0-2); EOSINOPHIL 1 % (0-7); LYMPHOCYTE 9 % (20-50); MONOCYTE 7 % (0-10); NEUTROPHIL 82 % (42-75); PLATELET ESTIMATE DECREASED (NORMAL); TOTAL CELLS COUNTED 100
[2018-02-25 14:22] LABS: ANISOCYTOSIS SLIGHT; HYPOCHROMIC SLIGHT
[2018-02-25 14:23] LABS: LARGE PLATELETS PRESENT
[2018-02-25 15:19] VITALS: BP 150/82; PULSE 71; RESP 17; O2SAT 99
== END 2018-02-25 15:30 | disposition home or self-care (01) ==
LOC: H.ER 12:49
DX: K57.00 Diverticulitis of small intestine with perforation and abscess without bleeding (principal); I10 Essential (primary) hypertension; I34.1 Nonrheumatic mitral (valve) prolapse; Z79.01 Long term (current) use of anticoagulants; Z95.0 Presence of cardiac pacemaker

== ENCOUNTER 2018-08-15 07:06 | Emergency (ER) | payer MEDICARE, OTHER ==
[2018-08-15 07:27] VITALS: PULSE 70; BMI 29.8
[2018-08-15] MEDS ORDERED: Morphine 4 MG/ML VIAL IVP STA (08:47)
--- NOTE | 2018-08-15 09:08 | ED PDOC ---
HPI: Nose Bleed Time Seen by Provider: 08/15/18 07:57 Chief Complaint (Nursing): ENT Problem Chief Complaint (Provider): ENT Problem History Per: Patient History/Exam Limitations: no limitations Onset/Duration Of Symptoms: Hrs Current Symptoms Are (Timing): Still Present Additional Complaint(s): Patient is a 67 y/o male on Coumadin and Aspirin with a PMHx of HTN, anemia, arthritis, atrial fibrillation, mitral valve prolapse, and peripheral edema who presents to the ED for evaluation of a frequent nose bleed since waking up this morning. Patient has stuffed nostrils with cotton balls but has been unable to stop nose bleed. Patient admits to nausea but denies dizziness and pain. Of note, patient had right nostril cauterized by Dr. Kendall Bernal in [place], [place]. In addition, patient had Coumadin checked by Dr. Rutledge but does not know levels at this time. PCP: Dr. Bob Rutledge Past Medical History Reviewed: Historical Data, Nursing Documentation, Vital Signs Vital Signs: Last Vital Signs Temp 97 F L 08/15/18 07:26 Pulse 70 08/15/18 07:26 Resp 20 08/15/18 07:26 BP 174/95 H 08/15/18 07:26 Pulse Ox 97 08/15/18 07:26 - Medical History PMH: Anemia, Arthritis, Atrial Fibrillation, Fractures, HTN, Mitral Valve Prolapse, Peripheral Edema Denies: CHF, COPD, HIV, Hypercholesterolemia, Hypothyroidism, Chronic Kidney Disease, Rheumatoid Arthritis - Surgical History Surgical History: Pacemaker Other surgeries: Nostrils Cauterized - Family History Family History: States: Unknown Family Hx - Home Medications Home Medications: Ambulatory Orders Medication Instructions Recorded RX: Allopurinol 300 mg PO DAILY 12/20/15 RX: Metoprolol Tartrate [Lopressor] 50 mg PO Q12 12/29/15 Aspirin [Ecotrin] 81 mg PO DAILY 08/04/17 Furosemide [Lasix] 40 mg PO DAILY 08/04/17 Warfarin [Coumadin] 10 mg PO DAILY 08/04/17 Enoxaparin [Lovenox] SUBCUT DAILY 08/28/17 Ciprofloxacin HCl [Cipro] 500 mg PO BID #20 tab 02/25/18 Dicyclomine [Dicyclomine HCl] 10 mg PO Q8 #10 cap 02/25/18 metroNIDAZOLE [Flagyl] 500 mg PO Q8 #30 tab 02/25/18 Acetaminophen with Codeine 1 each PO Q6 #10 tablet 08/15/18 [Tylenol with Codeine #3 Tablet] - Allergies Allergies/Adverse Reactions: Allergies Allergy/AdvReac Type Severity Reaction Status Date / Time shellfish derived Allergy RASH Verified 02/25/18 12:58 Review of Systems ROS Statement: Except As Marked, All Systems Reviewed And Found Negative ENT: Positive for: Nose Discharge (bleeding), Other (stuffed nostrils with cotton balls to prevent bleeding). Negative for: Nose Pain Gastrointestinal: Positive for: Nausea Neurological: Negative for: Dizziness Physical Exam - Reviewed Nursing Documentation Reviewed: Yes Vital Signs Reviewed: Yes - Physical Exam Appears: Positive for: Non-toxic, No Acute Distress Head Exam: Positive for: ATRAUMATIC, NORMAL INSPECTION, NORMOCEPHALIC Skin: Positive for: Normal Color, Warm, Dry Eye Exam: Positive for: Normal appearance, EOMI, PERRL ENT: Positive for: Other (initial blood soaked cotton in both nares; no active bleeding from right nare but steady stream from left; unable to visualize location of bleeding) Neck: Positive for: Normal, Painless ROM, Supple Cardiovascular/Chest: Positive for: Regular Rate, Rhythm. Negative for: Murmur Respiratory: Positive for: Normal Breath Sounds. Negative for: Respiratory Distress Gastrointestinal/Abdominal: Positive for: Normal Exam, Soft. Negative for: Tenderness Back: Positive for: Normal Inspection. Negative for: L CVA Tenderness, R CVA Tenderness, Vertebral Tenderness Extremity: Positive for: Normal ROM. Negative for: Pedal Edema, Deformity Neurologic/Psych: Positive for: Alert, Oriented. Negative for: Motor/Sensory Deficits - Laboratory Results Result Diagrams: 08/15/18 14:48 08/15/18 10:50 - ECG O2 Sat by Pulse Oximetry: 97 (RA) Pulse Ox Interpretation: Normal Medical Decision Making Medical Decision Making: Time: 08 Impresion: Left epistaxis unsure if anterior or posterior Plan: Type and Screen BMP CBC PTT Prothrombin Time Morphine 2 mg IVP Nasal Decongestant 15 ml 1 spr NS Zofran 4 mg IVP Time: 0830 - Left rhino rocket placed. Used 7 CC normal saline with sensation of left nose bleed. - Spoke with Dr. Kendall Matthews who recommends 7.5 rhino rocket. - Labs sent. - Zofran given for nausea. - Holding Coumadin at this point until resolution of nose bleed per Dr. Matthews. - If discharged home patient will go with rhino rocket and Amoxicillin. Followup in Dr. Matthews office by 08/18/2018 or 08/19/2018. Time: 0915 - Rhino rocket replaced as it had come out and a second 7.5 rhino rocket soaked in Afrin and 8 CC of normal saline placed anteriorly and posteriorly. - Slow dripping from right nostril most likely from left. - 2 mg Morphine given. No longer nauseous. - Vitals stable. Will continue to followup. Time: 1020 - Continues to have bleeding around left rhino rocket. - Second consult put in for Dr. Matthews. Awaiting phone call back. Time: 1100 - Spoke with Dr. Wolff who recommends removal of anterior and posterior and replacing with anterior packing soaked with Afrin which was placed with minimal improvement. Patient's left nostril continues to have dripping. Dr. Wolff will come to cauterize nostril. Time: 1540 - Spoke with Dr. Rutledge. Discussed drop in hemoglobin and hematocrit. Patient is allowed to go home but must be seen by Dr. Rutledge in outpatient clinic for repeat labs. Will consider is transfusion is needed. Followup with ENT. Return irwin guy discussed with him and his . Scribe Attestation: Documented by Gildardo Carrillo, acting as a scribe for Shanda Gresham MD. Provider Scribe Attestation: All medical record entries made by the Scribe were at my direction and personally dictated by me. I have reviewed the chart and agree that the record accurately reflects my personal performance of the history, physical exam, medical decision making, and the department course for this patient. I have also personally directed, reviewed, and agree with the discharge instructions and disposition. Disposition - Clinical Impression Clinical Impression: Nosebleed, symptom, Epistaxis - Disposition Disposition: Routine/Home Disposition Time: 15:40 Condition: IMPROVED Additional Instructions: Call Dr. Duarte Rutledge at 8am on Thursday to arrange for outpatient blood draw. Follow up with ENT within one week. Return to the emergency department if you develop weakness, dizziness, chest pain, or other new symptoms. Prescriptions: Acetaminophen with Codeine [Tylenol with Codeine #3 Tablet] 1 each PO Q6 #10 tablet Instructions: Nosebleeds (DC) Forms: [facility] (Kyrgyz) Print Language: SRI LANKAN
[2018-08-15 09:11] LABS: BASO # 0.1 K/uL (0.0-0.2); BASO % 0.6 % (0.0-2.0); EOS # 0.3 K/uL (0.0-0.7); EOS % 2.8 % (0.0-4.0); HEMOGLOBIN 12.8 g/dL (12.0-18.0); LYMPH # 1.7 K/uL (1.0-4.3); LYMPH % 17.8 % (20.0-40.0); MEAN CELL VOLUME 89.4 fl (80.0-94.0); MEAN CORPUSCULAR HEMOGLOBIN 29.4 pg (27.0-31.0); MEAN CORPUSCULAR HGB CONC 32.9 g/dL (33.0-37.0); MEAN PLATELET VOLUME 11.7 fl (7.2-11.7); MONO # 1.1 K/uL (0.0-0.8); MONO % 11.2 % (0.0-10.0); NEUT # 6.6 K/uL (1.8-7.0); NEUT % 67.6 % (50.0-75.0); NRBC % 0.1 % (0.0-0.0); RBC 4.35 Mil/uL (4.40-5.90); RED CELL DISTRIBUTION WIDTH 14.6 % (11.5-14.5); WHITE BLOOD COUNT 9.7 K/uL (4.8-10.8)
[2018-08-15 09:26] LABS: INR 2.3; PROTHROMBIN TIME 25.8 Seconds (9.8-13.1)
[2018-08-15 09:29] LABS: PARTIAL THROMBOPLASTIN TIME 44.1 Seconds (25.6-37.1)
[2018-08-15] MEDS ORDERED: Silver Nitrate Topical - Stick ONE ×4 (11:07→12:10)
[2018-08-15 11:38] LABS: BLOOD UREA NITROGEN 33 mg/dl (9-20); CALCIUM 9.8 mg/dL (8.4-10.2); GFR NON-AFRICAN AMERICAN > 60
[2018-08-15 15:16] LABS: BASO # 0.1 K/uL (0.0-0.2); BASO % 0.5 % (0.0-2.0); EOS % 0.2 % (0.0-4.0); HEMOGLOBIN 10.5 g/dL (12.0-18.0); LYMPH # 1.5 K/uL (1.0-4.3); LYMPH % 10.6 % (20.0-40.0); MEAN CELL VOLUME 89.8 fl (80.0-94.0); MEAN CORPUSCULAR HEMOGLOBIN 29.1 pg (27.0-31.0); MEAN CORPUSCULAR HGB CONC 32.4 g/dL (33.0-37.0); MEAN PLATELET VOLUME 11.7 fl (7.2-11.7); MONO # 1.4 K/uL (0.0-0.8); MONO % 9.6 % (0.0-10.0); NEUT # 11.1 K/uL (1.8-7.0); NEUT % 79.1 % (50.0-75.0); NRBC % 0.1 % (0.0-0.0); RBC 3.63 Mil/uL (4.40-5.90); RED CELL DISTRIBUTION WIDTH 14.8 % (11.5-14.5); WHITE BLOOD COUNT 14.1 K/uL (4.8-10.8)
[2018-08-15] MEDS ORDERED: Sodium Chloride 0.9% 1,000 ML IV STA (15:22)
[2018-08-15 18:33] VITALS: BP 106/66; RESP 20; TEMP 98.4
--- NOTE | 2018-08-15 23:02 | OP ---
PROCEDURE DATE: 08/15/2018 PREOPERATIVE DIAGNOSIS: Left epistaxis. POSTOPERATIVE DIAGNOSIS: Left epistaxis. PROCEDURE: Cauterization of left epistaxis. SURGEON: Deepak Wolff MD SIGNIFICANT FINDINGS: Left epistaxis on the anterior left septum. DESCRIPTION OF PROCEDURE: The patient was placed in a seated position. Silver nitrate sticks were used under direct visualization to cauterize the anterior septum. The bleeding that was there was controlled. The patient tolerated the procedure well. Deepak Woflf MD
[2018-08-16 14:39] VITALS: O2SAT 97
== END 2018-08-15 18:31 | disposition home or self-care (01) ==
LOC: H.ER 07:06
DX: R04.0 Epistaxis (principal); Z79.01 Long term (current) use of anticoagulants; Z79.82 Long term (current) use of aspirin; Z95.0 Presence of cardiac pacemaker; D64.9 Anemia, unspecified; I10 Essential (primary) hypertension; I48.91 Unspecified atrial fibrillation
CPT/HCPCS: 80048; 85025; 85610; 85730; 86850; 86900; 96374; 96375; 96376; 99285; J2270; J2405; J7030

== ENCOUNTER 2018-09-16 07:28 | Emergency (ER) | payer MEDICARE, OTHER ==
[2018-09-16 07:31] VITALS: BMI 30.7
[2018-09-16 07:32] VITALS: O2SAT 99
[2018-09-16] MEDS ORDERED: Phenylephrine 0.5% Nasal Spray NAS ONE (08:11)
[2018-09-16 08:27] LABS: BASO # 0.1 K/uL (0.0-0.2); BASO % 1.1 % (0.0-2.0); EOS # 0.3 K/uL (0.0-0.7); HEMOGLOBIN 9.6 g/dL (12.0-18.0); LYMPH # 1.3 K/uL (1.0-4.3); LYMPH % 15.1 % (20.0-40.0); MEAN CELL VOLUME 86.8 fl (80.0-94.0); MEAN CORPUSCULAR HGB CONC 32.3 g/dL (33.0-37.0); MEAN PLATELET VOLUME 11.5 fl (7.2-11.7); MONO # 0.7 K/uL (0.0-0.8); MONO % 8.3 % (0.0-10.0); NEUT # 6.2 K/uL (1.8-7.0); NEUT % 72.5 % (50.0-75.0); RBC 3.44 Mil/uL (4.40-5.90); RED CELL DISTRIBUTION WIDTH 15.2 % (11.5-14.5); WHITE BLOOD COUNT 8.6 K/uL (4.8-10.8)
[2018-09-16 08:31] LABS: INR 2.5
[2018-09-16 08:34] LABS: PARTIAL THROMBOPLASTIN TIME 43.2 Seconds (25.6-37.1)
[2018-09-16 08:41] LABS: ALB/GLOB RATIO 1.1 (1.0-2.1); CALCIUM 9.6 mg/dL (8.4-10.2)
[2018-09-16] MEDS ORDERED: Sodium Chloride 0.45% 1,000 ML IV SCH (09:00)
--- NOTE | 2018-09-16 09:27 | ED PDOC ---
HPI: Nose Bleed Time Seen by Provider: 09/16/18 07:41 Chief Complaint (Nursing): ENT Problem Chief Complaint (Provider): ENT Problem History Per: Patient History/Exam Limitations: no limitations Onset/Duration Of Symptoms: Hrs Current Symptoms Are (Timing): Still Present Location Of Bleeding: Right Nare Recent Aspirin Use: Yes (Last Taken) Additional Complaint(s): 67 y/o male with a PMHx of Atrial Fibrillation, HTN and Anemia presents to the ED for evaluation of a spontaneous bleeding from the right nare since waking up this morning. Patient with history significant for similar presentation to the left nare approximately one month ago which required ENT cauterization. Patient reports he is complaint with Coumadin and Aspirin. Patient notes of alternating doses of Coumadin between 5 mg and 10 mg. Patient reports he is due to see his PMD today in office. Otherwise, patient denies trauma, injury, headache and d izziness. PMD: Bob Rutledge Past Medical History Reviewed: Historical Data, Nursing Documentation, Vital Signs Vital Signs: Last Vital Signs Temp 97.5 F L 09/16/18 07:31 Pulse 71 09/16/18 07:31 Resp 18 09/16/18 07:31 BP 144/87 09/16/18 08:34 Pulse Ox 99 09/16/18 07:31 - Medical History PMH: Anemia, Arthritis, Atrial Fibrillation, Fractures, HTN, Mitral Valve Prolapse, Peripheral Edema Denies: CHF, COPD, HIV, Hypercholesterolemia, Hypothyroidism, Chronic Kidney Disease, Rheumatoid Arthritis - Surgical History Surgical History: Pacemaker - Family History Family History: States: Unknown Family Hx - Immunization History Hx Tetanus Toxoid Vaccination: No Hx Influenza Vaccination: No Hx Pneumococcal Vaccination: No - Home Medications Home Medications: Ambulatory Orders Medication Instructions Recorded Allopurinol 300 mg PO DAILY 12/20/15 Metoprolol Tartrate [Lopressor] 50 mg PO Q12 12/29/15 Aspirin [Ecotrin] 81 mg PO DAILY 08/04/17 Furosemide [Lasix] 40 mg PO DAILY 08/04/17 Warfarin [Coumadin] 10 mg PO DAILY 08/04/17 Enoxaparin [Lovenox] SUBCUT DAILY 08/28/17 Ciprofloxacin HCl [Cipro] 500 mg PO BID #20 tab 02/25/18 Dicyclomine [Dicyclomine HCl] 10 mg PO Q8 #10 cap 02/25/18 metroNIDAZOLE [Flagyl] 500 mg PO Q8 #30 tab 02/25/18 Acetaminophen with Codeine 1 each PO Q6 #10 tablet 08/15/18 [Tylenol with Codeine #3 Tablet] Amoxicillin [Amoxil 500 mg Cap] 500 mg PO BID #10 cap 09/16/18 - Allergies Allergies/Adverse Reactions: Allergies Allergy/AdvReac Type Severity Reaction Status Date / Time shellfish derived Allergy RASH Verified 02/25/18 12:58 Review of Systems ROS Statement: Except As Marked, All Systems Reviewed And Found Negative ENT: Positive for: Other (epistaxis) Cardiovascular: Negative for: Chest Pain Respiratory: Negative for: Shortness of Breath Musculoskeletal: Negative for: Other (facial pain) Neurological: Negative for: Headache, Dizziness Physical Exam - Reviewed Nursing Documentation Reviewed: Yes Vital Signs Reviewed: Yes - Physical Exam Appears: Positive for: No Acute Distress Head Exam: Positive for: ATRAUMATIC Skin: Positive for: Normal Color, Warm, Dry. Negative for: Pallor Eye Exam: Positive for: Normal appearance, EOMI ENT: Positive for: Other (bright red epistaxis noted from the right nare, ant erior origin likely) Neck: Positive for: Normal, Painless ROM Cardiovascular/Chest: Positive for: Regular Rate, Rhythm. Negative for: Murmur Respiratory: Positive for: Normal Breath Sounds. Negative for: Respiratory Distress Neurological/Psych: Positive for: Awake, Alert, Oriented (x3). Negative for: Motor/Sensory Deficits - Laboratory Results Result Diagrams: 09/16/18 08:15 09/16/18 08:15 Lab Results: PT 28.0 Seconds (9.8-13.1) H 09/16/18 08:15 INR 2.5 09/16/18 08:15 APTT 43.2 Seconds (25.6-37.1) H 09/16/18 08:15 Total Bilirubin 0.5 mg/dl (0.2-1.3) 09/16/18 08:15 AST 43 U/L (17-59) 09/16/18 08:15 ALT 24 U/L (21-72) 09/16/18 08:15 Alkaline Phosphatase 69 U/L (38-126) 09/16/18 08:15 Total Protein 7.6 G/DL (6.3-8.2) 09/16/18 08:15 Albumin 4.0 g/dL (3.5-5.0) 09/16/18 08:15 Globulin 3.7 gm/dL (2.2-3.9) 09/16/18 08:15 Albumin/Globulin Ratio 1.1 (1.0-2.1) 09/16/18 08:15 - ECG O2 Sat by Pulse Oximetry: 99 (RA) Pulse Ox Interpretation: Normal Medical Decision Making Medical Decision Making: Time: 0749 A/P: Obtain blood work and INR -- CMP -- CBC with Differentials -- PTT -- Prothrombin Time -- Sodium Chloride IV 1000 mls/hr -- Nasal Decongestant 15 ml 1 spr NS -- Afrin soaked rhinorocket was placed into the right nare with frequent evaluation and improvement of epistaxis. -- Blood work reviewed and demonstrate an INR of 2.5. Hemoglobin slightly improved from prior. -- Will place call to Dr. Rutledge and ENT specialist. pt monitored 4+ hrs without further bleeding, hold coumadin / ASA tonight and tomr, d/w Dr Rutledge agrees w plan Time: 0337 -- Spoke to Dr. Hwang who states patient is to follow up with him in his office tomorrow between 12 and 1 as well as advised to hold taking Coumadin tonight. Scribe Attestation: Documented by Otoniel De La Cruz, acting as a scribe Raya Huston DO. Provider Scribe Attestation: All medical record entries made by the Scribe were at my direction and personally dictated by me. I have reviewed the chart and agree that the record accurately reflects my personal performance of the history, physical exam, medical decision making, and the department course for this patient. I have also personally directed, reviewed, and agree with the discharge instructions and disposition. Disposition - Clinical Impression Clinical Impression: Epistaxis, Coagulopathy - Patient ED Disposition Is Patient to be Admitted: No Counseled Patient/Family Regarding: Studies Performed, Diagnosis, Need For Followup - Disposition Referrals: George Hwang MD [Staff Provider] - Disposition: Routine/Home Disposition Time: 11:57 Condition: STABLE Additional Instructions: Hold coumadin and aspirin tonight and tomorrow. Discuss with Dr Rutledge when to restart. See Dr Hwang ENT in office tomorrow between 12-1pm. Address below in [place]. Prescriptions: Amoxicillin [Amoxil 500 mg Cap] 500 mg PO BID #10 cap Instructions: Nosebleeds (DC) Forms: [facility] (Slovak)
[2018-09-16 13:19] VITALS: BP 146/80; PULSE 79; RESP 17; TEMP 98.2
== END 2018-09-16 13:17 | disposition home or self-care (01) ==
LOC: H.ER 07:28
DX: R04.0 Epistaxis (principal); D68.9 Coagulation defect, unspecified; D64.9 Anemia, unspecified; I10 Essential (primary) hypertension; I34.1 Nonrheumatic mitral (valve) prolapse; I48.91 Unspecified atrial fibrillation; Z95.0 Presence of cardiac pacemaker
CPT/HCPCS: 80053; 85025; 85610; 85730; 99283; J7030